=== PATIENT | female | born 1995 | race Two or more races ===

== ENCOUNTER 2022-12-06 12:54 | Emergency (ER) | payer OTHER ==
[~2022-12-06] VITALS: Ht 175.3 cm; Wt 67.6 kg
[2022-12-06] MEDS ORDERED: LOVENOX40 MG/0.4 SUBCUTANEO (13:16)
== END 2022-12-06 16:02 | disposition home or self-care (01) ==
LOC: ER 12:54
DX: O20.8 Other hemorrhage in early pregnancy (principal); Z3A.10 10 weeks gestation of pregnancy; Z88.6 Allergy status to analgesic agent